=== PATIENT | male | born 1935 | race Two or more races ===

== ENCOUNTER 2020-01-07 05:00 | Day surgery (SDC) | payer OTHER ==
[~2020-01-07 05:00] MED LIST: ADULT LOW DOSE81 M1 PO; HUMALOG100 UNIT/2; LANTUS SOL100 UNIT/1 SQ; LANTUS100 U/ML; NOVOLOG100 U/ML; SALATAN; [UNRECOGNIZED DRUG - OTHER]
[2020-01-07] MEDS ORDERED: OXYC1TAB9 PO (09:02)
[2020-01-07] MEDS ORDERED: DUI500 PO (09:02)
== END 2020-01-07 10:50 | disposition home or self-care (01) ==
LOC: CIR.AMB 05:00
PROVIDERS: ATTEND Orthopaedic Surgery Sports Medicine
DX: G56.01 Carpal tunnel syndrome, right upper limb (principal); M65.9 Synovitis and tenosynovitis, unspecified